=== PATIENT | male | born 1965 | race Caucasian/White ===

== ENCOUNTER 2016-07-07 01:17 | Emergency (ER) | payer OTHER, BC ==
[~2016-07-07] VITALS: Ht 152.4 cm; Wt 102.1 kg
[~2016-07-07 01:17] MED LIST: ASPIRIN81 M1 PO; HYDR25T PO; LISINOPRIL10 M1 PO; VIGAMOX 5 ML5 ML
[2016-07-07] MEDS ORDERED: HYDROCODONE BIT1 T11 PO (02:53)
[2016-07-07] MEDS ORDERED: Orphenadrine C100 MG PO (02:53)
== END 2016-07-07 03:06 | disposition home or self-care (01) ==
LOC: ED 01:17
DX: S22.32XA Fracture of one rib, left side, initial encounter for closed fracture (principal); Z79.82 Long term (current) use of aspirin; Z79.899 Other long term (current) drug therapy; V89.2XXS Person injured in unspecified motor-vehicle accident, traffic, sequela; Y93.9 Activity, unspecified; Y92.9 Unspecified place or not applicable; Y99.9 Unspecified external cause status

== ENCOUNTER → 2017-07-14 | Outpatient (CLI) | payer OTHER ==
[~2017-07-14] MED LIST changes: +HYDROCODONE BIT1 T11 PO; +Orphenadrine C100 MG PO
[2017-07-14 09:19] LABS: CHLORIDE 106 mmol/L (98-107); POTASSIUM 4.3 mmol/L (3.5-5.1); SODIUM 139 mmol/L (136-145)
[2017-07-14 09:28] LABS: ALKALINE PHOSPHATASE 59 U/L (45-117); BUN 20 mg/dl (7-24); CREATININE 1.14 mg/dL (0.70-1.30); SGOT/AST 16 IU/L (3-35); SGPT/ALT 23 U/L (12-78); TOTAL PROTEIN 7.7 gm/dL (6.4-8.2)
== END | disposition home or self-care (01) ==
LOC: LAB 07:39
PROVIDERS: Urology
DX: C64.1 Malignant neoplasm of right kidney, except renal pelvis (principal)

== ENCOUNTER → 2017-09-22 | Outpatient (CLI) | payer OTHER ==
[2017-09-22 08:49] LABS: BASO % 0.5 % (0.0-1.0); EOS # 0.3 10*3/uL (0.0-0.4); HEMATOCRIT 45.5 % (42.0-52.0); HEMOGLOBIN 14.9 g/dl (14.0-18.0); LYMPH # 2.6 10*3/uL (1.3-4.4); LYMPH % 30.5 % (27.0-41.0); MEAN CELL VOLUME 84.7 fl (80.0-94.0); MEAN CORPUSCULAR HGB 27.7 pg (27.0-31.0); MEAN CORPUSCULAR HGB CONC 32.7 g/dl (33.0-37.0); MEAN PLATELET VOLUME 9.7 fl (9.6-12.3); MONO # 0.7 10*3/uL (0.1-1.0); NEUT # 4.8 10*3/uL (2.3-7.9); NEUT % 56.5 % (47.0-73.0); PLATELET COUNT AUTOMATED 245 10*3/uL (130-400); RED BLOOD COUNT 5.37 10*6/uL (4.50-5.90); WHITE BLOOD COUNT 8.5 10*3/uL (4.8-10.8)
[2017-09-22 09:06] LABS: ALKALINE PHOSPHATASE 48 U/L (45-117); BUN 19 mg/dl (7-24); CHLORIDE 106 mmol/L (98-107); CHOLESTEROL 140 mg/dL (<200); CREATININE 1.14 mg/dL (0.70-1.30); HDL CHOLESTEROL 29 mg/dl (40-60); LDL CHOLESTEROL 89 mg/dL (9-159); SGOT/AST 15 IU/L (3-35); SGPT/ALT 27 U/L (12-78); SODIUM 141 mmol/L (136-145); TOTAL PROTEIN 7.2 gm/dL (6.4-8.2); TRIGLYCERIDES 111 mg/dl (<150); VLDL CHOLESTEROL 22 mg/dL (6-40)
== END | disposition home or self-care (01) ==
LOC: LAB 08:24
PROVIDERS: Internal Medicine
DX: E78.2 Mixed hyperlipidemia (principal); E11.9 Type 2 diabetes mellitus without complications; E55.9 Vitamin D deficiency, unspecified

== ENCOUNTER → 2017-09-29 | Outpatient (CLI) | payer OTHER ==
[~2017-09-29] MED LIST changes: -LISINOPRIL10 M1 PO; +METFORMIN500 MG PO; +VIT C PO; +VIT D PO; +ZESTRIL20 MG PO
--- NOTE | ~2017-09-29 | ST ---
[place], [place] EXERCISE STRESS TEST REPORT [id number] UNIT #: [id number] ROOM: DOCTOR: SANDOVAL DA SILVA,ELIAN BIRTHDATE: [birth year] DOS: 09/29/2017 INDICATIONS: Atypical chest pain/precordial chest pain. PROCEDURE: The patient walked on a full Giancarlo protocol stress test for 7 minutes 50 seconds and achieved a maximum heart rate of 151 which represented 90% of his maximum predicted heart rate at a workload of 10 mets. He stopped for fatigue and dyspnea. He had no chest pain. The resting electrocardiogram showed sinus rhythm with low voltage in the limb leads. No other changes were seen. He had no diagnostic changes with exercise. The Marie treadmill score was 7.8 consistent with a low risk for future cardiac events. IMPRESSION: 1. Adequate exercise capacity without chest pain or diagnostic electrocardiographic changes. 2. Radionuclide injected 1 minute prior to the completion of the exercise protocol. Please see the separate imaging report for details of the patient's stress test results. 3. Marie treadmill score 7.8 consistent with low probability of coronary event. ELIAN NICK MD CM:STRESS:EXERCISE STRESS TEST REPORT [id number] ELIAN NICK MD
== END | disposition home or self-care (01) ==
LOC: CARD 02:45
DX: R07.89 Other chest pain (principal)

== ENCOUNTER 2018-01-25 17:37 | Emergency (ER) | payer OTHER ==
[~2018-01-25] VITALS: Ht 175.2 cm; Wt 90.7 kg
[2018-01-25] MEDS ORDERED: NORCO 5-325 TA1 EACH PO (18:32)
== END 2018-01-25 18:34 | disposition home or self-care (01) ==
LOC: ED 17:37
DX: S52.515A Nondisplaced fracture of left radial styloid process, initial encounter for closed fracture (principal); Z79.899 Other long term (current) drug therapy; Z79.82 Long term (current) use of aspirin; W19.XXXA Unspecified fall, initial encounter; Y93.89 Activity, other specified; Y92.89 Other specified places as the place of occurrence of the external cause; Y99.9 Unspecified external cause status

== ENCOUNTER → 2018-01-28 | Outpatient (CLI) | payer OTHER ==
[~2018-01-28] MED LIST changes: +NORCO 5-325 TA1 EACH PO
[2018-01-28 09:53] LABS: ALBUMIN 3.8 gm/dl (3.1-4.5); ALKALINE PHOSPHATASE 51 U/L (45-117); BUN 19 mg/dl (7-24); CHLORIDE 109 mmol/L (98-107); POTASSIUM 4.3 mmol/L (3.5-5.1); SGOT/AST 16 IU/L (3-35); SGPT/ALT 29 U/L (12-78); SODIUM 139 mmol/L (136-145); TOTAL PROTEIN 7.4 gm/dL (6.4-8.2)
== END | disposition home or self-care (01) ==
LOC: LAB 08:35
PROVIDERS: Urology
DX: Z12.89 Encounter for screening for malignant neoplasm of other sites (principal); C64.1 Malignant neoplasm of right kidney, except renal pelvis; I10 Essential (primary) hypertension; E11.9 Type 2 diabetes mellitus without complications

== ENCOUNTER → 2018-01-30 | Outpatient (CLI) | payer OTHER | LOC: CT 03:26 | DX: C64.1 Malignant neoplasm of right kidney, except renal pelvis (principal); K40.90 Unilateral inguinal hernia, without obstruction or gangrene, not specified as recurrent; Z90.5 Acquired absence of kidney ==

== ENCOUNTER → 2018-03-23 | Outpatient (CLI) | payer OTHER | END | disposition home or self-care (01) | LOC: ORTHO 00:23 | DX: Z47.89 Encounter for other orthopedic aftercare (principal); S52.592D Other fractures of lower end of left radius, subsequent encounter for closed fracture with routine healing; S52.542D Smith's fracture of left radius, subsequent encounter for closed fracture with routine healing; X58.XXXD Exposure to other specified factors, subsequent encounter ==

== ENCOUNTER → 2020-08-09 | Outpatient (CLI) | payer OTHER | END | disposition home or self-care (01) | LOC: COVID19 10:16 | PROVIDERS: ATTEND Family Medicine | DX: U07.1 COVID-19 (principal) ==

== ENCOUNTER → 2020-11-28 | Outpatient (CLI) | payer OTHER ==
[2020-11-28 08:55] LABS: CREATININE 1.13 mg/dL (0.70-1.30)
== END | disposition home or self-care (01) ==
LOC: LAB 08:23 → CT 09:00
PROVIDERS: Radiology Diagnostic Radiology; ATTEND Urology
DX: C64.1 Malignant neoplasm of right kidney, except renal pelvis (principal); K76.89 Other specified diseases of liver; K42.9 Umbilical hernia without obstruction or gangrene; K40.90 Unilateral inguinal hernia, without obstruction or gangrene, not specified as recurrent; Z98.890 Other specified postprocedural states

== ENCOUNTER 2020-12-10 17:01 | Emergency (ER) | payer OTHER ==
[~2020-12-10] VITALS: Ht 175.2 cm; Wt 93.0 kg
== END 2020-12-10 19:50 | disposition home or self-care (01) ==
LOC: ED 17:01
DX: S60.511A Abrasion of right hand, initial encounter (principal); S60.512A Abrasion of left hand, initial encounter; S80.212A Abrasion, left knee, initial encounter; Z79.899 Other long term (current) drug therapy; Z79.82 Long term (current) use of aspirin; X58.XXXA Exposure to other specified factors, initial encounter; Y93.89 Activity, other specified; Y92.89 Other specified places as the place of occurrence of the external cause; Y99.8 Other external cause status

== ENCOUNTER → 2022-02-20 | Outpatient (CLI) | payer OTHER ==
[2022-02-20 10:42] LABS: ALKALINE PHOSPHATASE 52 U/L (45-117); BUN 16 mg/dl (7-24); CHLORIDE 108 mmol/L (98-107); CREATININE 1.02 mg/dL (0.70-1.30); POTASSIUM 4.4 mmol/L (3.5-5.1); SGOT/AST 21 IU/L (3-35); SGPT/ALT 40 U/L (12-78); SODIUM 142 mmol/L (136-145); TOTAL PROTEIN 7.1 gm/dL (6.4-8.2)
== END | disposition home or self-care (01) ==
LOC: LAB 09:41
PROVIDERS: ATTEND Urology
DX: C64.1 Malignant neoplasm of right kidney, except renal pelvis (principal)

== ENCOUNTER → 2022-03-25 | Outpatient (CLI) | payer OTHER | END | disposition home or self-care (01) | LOC: COVID19 13:02 | PROVIDERS: ATTEND Internal Medicine | DX: Z20.822 Contact with and (suspected) exposure to COVID-19 (principal) ==

== ENCOUNTER 2023-10-20 16:01 | Emergency (ER) | payer SELFPAY ==
[~2023-10-20] VITALS: Ht 177.8 cm; Wt 96.2 kg
[2023-10-20] MEDS ORDERED: ATORVASTATIN CA10 M1 PO (16:18)
[2023-10-20] MEDS ORDERED: TOBRAMYCIN 2.5 ML BOT OPH ONE (16:34)
== END 2023-10-20 16:31 | disposition home or self-care (01) ==
LOC: ED 16:01
DX: H10.9 Unspecified conjunctivitis (principal); Z79.899 Other long term (current) drug therapy; Z79.82 Long term (current) use of aspirin

== ENCOUNTER 2023-10-22 04:49 | Emergency (ER) | payer SELFPAY ==
[~2023-10-22] VITALS: Ht 175.2 cm; Wt 105.7 kg
[~2023-10-22 04:49] MED LIST changes: +ATORVASTATIN CA10 M1 PO
[2023-10-22] MEDS ORDERED: Tetracaine Hydrochloride 0.5% 4 ML BOT OPH ONE (05:10)
[2023-10-22] MEDS ORDERED: FLUORESCEIN SODIUM 1 MG STRIP OPH ONE (05:10)
[2023-10-22] MEDS ORDERED: TRAMADOL HCL50 MG PO (05:37)
[2023-10-22] MEDS ORDERED: TOBRAMYCIN 3.5 GM TUBE OPH ONE (05:40)
[2023-10-22] MEDS ORDERED: Tdap Vaccine 0.5 ML SYR (Adult Vaccine) IM ONE (05:40)
== END 2023-10-22 06:01 | disposition home or self-care (01) ==
LOC: ED 04:49
DX: S01.01XA Laceration without foreign body of scalp, initial encounter (principal); Z79.899 Other long term (current) drug therapy; Z79.82 Long term (current) use of aspirin; X58.XXXA Exposure to other specified factors, initial encounter; Y93.89 Activity, other specified; Y92.89 Other specified places as the place of occurrence of the external cause; Y99.8 Other external cause status

== ENCOUNTER → 2024-09-02 | Outpatient (CLI) | payer OTHER ==
[~2024-09-02] MED LIST changes: +TRAMADOL HCL50 MG PO
[2024-09-02 17:33] LABS: BILIRUBIN 2+ (Negative); BLOOD 2+ (Negative); CLARITY Turbid (Clear); COLOR Red (Yellow); GLUCOSE Negative (Negative); KETONE Negative (Negative); LEUKO ESTERASE 2+ (Negative); NITRITE Positive (Negative); UROBILINOGEN 0.2 E.U./dl (0.0-1.0)
[2024-09-02 17:39] LABS: BACTERIA 2+; RBC TNTC rbc/hpf (0-2); WBC 16-20 wbc/hpf (0-5)
== END | disposition home or self-care (01) ==
LOC: ZRHCWE 17:10
PROVIDERS: ATTEND Nurse Practitioner Family
DX: R31.9 Hematuria, unspecified (principal)